=== PATIENT | male | born 1990 | race Caucasian/White ===

== ENCOUNTER 2022-08-13 08:40 | Emergency (ER) | payer OTHER, SELFPAY ==
[2022-08-13 09:12] VITALS: BP 136/95; PULSE 70; RESP 14; TEMP 36.3; O2SAT 98; BMI 31.4
[2022-08-13] MEDS: IBUPROFEN 400 MG TABLET 800 MG PO (12:26)
[2022-08-13 12:30] VITALS: BP 132/89; PULSE 83; RESP 18; TEMP 37.1; O2SAT 98
--- NOTE | 2022-08-13 13:07 | ED_ITS ---
HPI - URI/Sore Throat <SHEREE Joya - Last Filed: 08/13/22 15:09> General Chief Complaint: Upper Respiratory Symptoms Stated Complaint: Sore throat, head pain (sinus)/drainage Time Seen by Provider: 08/13/22 12:03 Source: patient Mode of arrival: Ambulatory History of Present Illness HPI Narrative: This is a 31-year-old male who presents to the emergency department complaining of sore throat which started last night and has been worsening. States he has a history of strep throat 10 years ago and states he has 3 small children at home. Denies anybody at home with viral illness, states that he had COVID in March of 2022 in his vaccinated against COVID. Patient denies any nausea vomiting, diarrhea. Denies any cough, states he has sinus congestion and a runny nose with a sore throat. Denies any wheezing or history of asthma. Related Data Previous Rx's Medication Instructions Recorded amoxicillin 875 mg-potassium 1 tab PO BID pharyngitis 10 days 08/13/22 clavulanate 125 mg tablet #20 tabs dextromethorphan-benzocaine 5 1 gladys PO Q4H PRN sore throat #16 ea 08/13/22 mg-7.5 mg lozenges (Cepacol Sore Throat-Cough) fluticasone furoate 27.5 1 spray intranasal BID PRN nasal 08/13/22 mcg/actuation nasal congestion #5.9 mL spray,suspension Allergies Allergy/AdvReac Type Severity Reaction Status Date / Time No Known Drug Allergies Allergy Verified 08/13/22 09:16 Review of Systems <SHEREE Joya - Last Filed: 08/13/22 15:09> Review of Systems Narrative: Review of systems is negative for acute abnormalities unless otherwise noted in HPI Patient History <SHEREE Joya - Last Filed: 08/13/22 15:09> Social History Smoking Status: Never smoker Smoking Status: Never smoker alcohol intake frequency: 0-2 drinks per day Substance Use Type: does not use Exam <SHEREE Joya - Last Filed: 08/13/22 15:09> Narrative Exam Narrative: Reviewed vitals signs and nursing notes. General: cooperative, comfortable, in no acute distress, well groomed HEENT: symmetrical facial expressions, moist mucous membranes, posterior pharynx with tonsillar adenopathy without exudate, mild erythema, sinus congestion without sinus tenderness on exam, nares patent Cardiovascular: regular rate and rhythm, no peripheral edema, warm extremities Respiratory: normal effort, able to speak in complete sentences, without wheezing, stridor, or abnormal breath sounds. No retractions or tachypnea. GI: abdomen soft, nontender to palpation, nondistended, without masses, rebound tenderness or exquisite tenderness with exam. MSK: moves all extremities, neurovascularly intact, no weakness, normal tone Skin: brisk capillary refill, without pallor or erythema Neuro: normal speech and cognition, A&O x3, ambulatory, clear speech Psych: mental status is grossly normal, congruent mood, normal affect, pleasant and cooperative Initial Vital Signs Initial Vital Signs: Vital Signs Temperature 97.3 F L 08/13/22 09:12 Pulse Rate 70 08/13/22 09:12 Respiratory Rate 14 08/13/22 09:12 Blood Pressure 136/95 H 08/13/22 09:12 Pulse Oximetry 98 08/13/22 09:12 Oxygen Delivery Method 08/13/22 09:12 <Renetta Davidson DO - Last Filed: 08/14/22 20:31> Initial Vital Signs Initial Vital Signs: Vital Signs Temperature 97.3 F L 08/13/22 09:12 Pulse Rate 70 08/13/22 09:12 Respiratory Rate 14 08/13/22 09:12 Blood Pressure 136/95 H 08/13/22 09:12 Pulse Oximetry 98 08/13/22 09:12 Oxygen Delivery Method 08/13/22 09:12 Course <SHEREE Joya - Last Filed: 08/13/22 15:09> Orders Ordered: Discontinued Medications Ibuprofen (Ibuprofen 400 Mg Tablet) 800 mg PO NOW ONE Stop: 08/13/22 12:21 Last Admin: 08/13/22 12:26 Dose: 800 mg Documented By: GILMA Vital Signs Vital signs: Vital Signs - 8 hr 08/13/22 09:12 08/13/22 12:30 Temperature 97.3 F L 98.8 F Pulse Rate 70 83 Respiratory Rate 14 18 Blood Pressure 136/95 H 132/89 Pulse Oximetry 98 98 Oxygen Delivery Method Room Air Room Air <Renetta Davidson DO - Last Filed: 08/14/22 20:31> Orders Ordered: Discontinued Medications Ibuprofen (Ibuprofen 400 Mg Tablet) 800 mg PO NOW ONE Stop: 08/13/22 12:21 Last Admin: 08/13/22 12:26 Dose: 800 mg Documented By: GILMA Vital Signs Vital signs: Vital Signs - 8 hr 08/13/22 09:12 08/13/22 12:30 Temperature 97.3 F L 98.8 F Pulse Rate 70 83 Respiratory Rate 14 18 Blood Pressure 136/95 H 132/89 Pulse Oximetry 98 98 Oxygen Delivery Method Room Air Room Air MDM - URI/Sore Throat <SHEREE Joya - Last Filed: 08/13/22 15:09> Lab Data Labs: Lab Results 08/13/22 Range/Units 12:20 SARS-CoV-2 (PCR) Negative (Negative) Influenza A (RT-PCR) Flu a negative (NEGATIVE) Influenza B (RT-PCR) Flu b negative (NEGATIVE) RSV (PCR) Negative (Negative) MDM Narrative Medical decision making narrative: This is a 31-year-old male presents to the emergency department with congestion and sore throat for the last 36 hours. States he took a COVID test at home which was negative. 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 His rapid strep was negative, throat culture obtained and is pending. Posterior pharynx with tonsillar adenopathy and mild erythema. COVID RSV and influenza PCR Breath sounds are clear on exam without hypoxia or tachypnea. COVID PCR, influenza a and B and RSV are all negative today, breath sounds are clear throughout, rapid strep was negative and throat culture is pending. Patient was given a wait and see antibiotic for positive throat culture if it turns out, understands to follow-up with [facility] prior to returning to work if he takes any antihistamines or any medications that are on the list of medications and he can not take a packing machine pilot can router. Patient is without tachypnea, hypoxia, signs of distress. Recommend he follow up with his primary care provider as needed. Patient is appropriate and amenable to discharge home. Vital signs are stable on repeat examination is unremarkable. Patient has been informed of results. Patient has been given strict return to ER precautions for any new or worsening symptoms. Patient understands to follow up closely with outpatient providers as instructed. Patient understands plan and agrees to discharge home. All questions and concerns answered at this time. #66: Appropriate Testing for Patients with Pharyngitis [x] The patient has acute pharyngitis/tonsillitis. The patient was prescribed antibiotics today and a strep test or culture was performed. [SATISFIES MIPS PERFORMANCE] [] The patient has acute pharyngitis/tonsillitis and was prescribed antibiotics today. A strep test or culture was not performed because the patient meets one of the following: [MIPS PERFORMANCE EXCEPTION/EXCLUSION] [] Patient received a competing diagnosis. The patient?s competing diagnosis is [] (e.g. acute otitis media, chronic sinusitis, cellulitis, etc.) [] Patient is currently on antibiotics or has been in the last 30 days. [] Patient had a competing comorbid condition within the last 12 months. The patient?s comorbid condition is [] (e.g., tuberculosis, neutropenia, cystic fibrosis, chronic bronchitis, pulmonary edema, respiratory failure, rheumatoid lung disease) [] The patient has acute pharyngitis/tonsillitis. The patient was prescribed antibiotics today and a strep test or culture was not performed. [DOES NOT SATISFY MIPS PERFORMANCE] <Renetta Davidson DO - Last Filed: 08/14/22 20:31> Lab Data Labs: Lab Results 08/13/22 Range/Units 12:20 SARS-CoV-2 (PCR) Negative (Negative) Influenza A (RT-PCR) Flu a negative (NEGATIVE) Influenza B (RT-PCR) Flu b negative (NEGATIVE) RSV (PCR) Negative (Negative) Discharge Plan Departure Patient Disposition: Home Clinical Impression: Upper respiratory infection Instructions: Common Cold, DI for Strep Throat, DI for Viral Upper Respiratory Infection -- Adult Activity Restrictions/Additional Instructions: *You likely have an upper respiratory viral illness that should get better in the next 2-5 days. Please stay hydrated, take Tylenol and ibuprofen as needed for fever, you can take Zyrtec at night to help manage sinus congestion, use throat lozenges as needed for sore throat, if throat pain is worsening without a cough, okay to start antibiotics for bacterial pharyngitis/strep throat. Thank you for coming in for evaluation, if you are having a fever or have taken any antihistamines or medications on the no fly list then please follow-up with [facility] prior to returning to duty. You can use fluticasone nasal spray which is not sedating for nasal congestion. Your throat culture will be complete in 2 days, if it does not grow out bacteria any are continuing to have symptoms, please continue to test yourself for COVID and consider that this is likely a viral infectio/ common cold. *What to do: *Please continue to take your regular medications as directed. [x ] New medication prescriptions sent to your pharmacy: [ DOD] [ ] New medication written as a paper prescription [ ] No new medications given *Please follow up with your primary care provider in 2-3 days, call for an appointment. Let them know you were seen in the Emergency Department and that we asked that you be seen for follow-up. We will electronically transmit a record of today's note if your PCP is in our system *If you do not have a primary care provider please contact [phone] to establish care with one of [facility] primary care providers. *Return to Emergency Department if you should have any new, worsening, or concerning symptoms, such as [fever greater than 101F, chills, worsening pain, persistent vomiting or other bothersome symptoms]. Prescriptions: New amoxicillin-pot clavulanate 875-125 mg tablet 1 tab PO BID 10 Days Qty: 20 0RF Cepacol Sore Throat-Cough 5-7.5 mg lozenge 1 gladys PO Q4H PRN (Reason: sore throat) Qty: 16 0RF fluticasone furoate 27.5 mcg/actuation spray,suspension 1 spray intranasal BID PRN (Reason: nasal congestion) Qty: 5.9 0RF Rx Instructions: into each nostril Referrals: ProviderJaylene [Primary Care Provider] - Visit Report Forms: Patient Portal/API <Renetta Davidson DO - Last Filed: 08/14/22 20:31> Cosign ED Attending Kwameature Attestation: I was immediately available in the department for consultation. Documentation has been reviewed. I agree with assessment and plan.
[2022-08-13 13:15] LABS: Influenza A - CEPHEID Flu A NEGATIVE (NEGATIVE); Influenza B - CEPHEID Flu B NEGATIVE (NEGATIVE); Respiratory Syncytial Virus Negative (Negative)
[2022-08-13 13:26] LABS: COVID-19 CEPHEID PCR (VTM/NP) Negative (Negative)
== END 2022-08-13 12:34 | disposition home or self-care (01) ==
PROVIDERS: Emergency Provider Nurse Practitioner Critical Care Medicine
DX: J06.9 Acute upper respiratory infection, unspecified (principal); Z20.822 Contact with and (suspected) exposure to COVID-19
CPT/HCPCS: 0241U; 87070; 87081; 99282; 99283